=== PATIENT | female | born 1985 | race Two or more races ===

== ENCOUNTER 2017-02-02 21:22 | Emergency (ER) | payer SELFPAY ==
[~2017-02-02] VITALS: Ht 157.5 cm; Wt 46.0 kg
[2017-02-03] VITALS: BP 102/55
[2017-02-03] MEDS ORDERED: HYDROCODONE/ACETAMINOPHEN 5/325MG TABLET PO ONE (01:15)
[2017-02-03] MEDS ORDERED: TETANUS, DIPHTHERIA, PERTUSSIS VAC/PF 0.5ML (>7YR OLD) IM ONE (01:15)
== END 2017-02-03 10:48 | disposition left against medical advice (07) ==
LOC: ER 02-03 10:48
DX: S61.012A Laceration without foreign body of left thumb without damage to nail, initial encounter (principal); W45.8XXA Other foreign body or object entering through skin, initial encounter; Y93.89 Activity, other specified; Y92.89 Other specified places as the place of occurrence of the external cause; Y99.8 Other external cause status
CPT/HCPCS: 99282; X7700; Z7610; 90715